=== PATIENT | male | born 1950 | race Caucasian/White ===

== ENCOUNTER 2017-11-28 20:59 | Emergency (ER) | payer MEDICARE, BC ==
[2017-11-28] MEDS ORDERED: ASPIRIN 81 MG TAB.CHEW ONE (21:08)
--- NOTE | 2017-11-28 21:11 | ERNOTE ---
Chest Pain/Cardiac HPI Time Seen by Provider: 11/28/17 21:03 Source: patient Exam Limitations: no limitations Allergies/Adverse Reactions: Allergies morphine Adverse Reaction (Mild, Verified 01/10/16 12:56) Vomiting oxycodone HCl [From Percocet] Adverse Reaction (Mild, Verified 01/10/16 12:56) Vomiting Home Medications: HOME MEDICATIONS Dicyclomine HCl [Bentyl] 10 mg PO TID PRN #20 capsule 11/29/17 [Last Taken Unknown] Narrative: Pt had onset of substernal chest pain around 16:00 today after some period of exertion. Timing: constant Severity/Quality: moderate, dull Location: substernal Chest Pain Radiation: back Activities at Onset: activity - had been putting up a garage door but had finished before the pain began Modifying Factors - Improves: Present: nothing Associated Symptoms: Absent: shortness of breath, diaphoresis, fever/chills, nausea, vomiting Review of Systems - Review of Systems Constitutional: Absent: recent illness, fever, chills EYE: Present: no symptoms reported ENT: Absent: nose congestion, nasal drainage Respiratory: Absent: shortness of breath, cough Cardiology: Present: See HPI Gastrointestinal/Abdominal: Absent: nausea, vomiting Genitourinary: Absent: frequency, pain, dysuria Musculoskeletal: Present: no symptoms reported Skin: Present: no symptoms reported Neurological: Present: no symptoms reported Endocrine: Present: no symptoms reported Hematologic/Lymphatic: Present: no symptoms reported Psych: Present: no symptoms reported - Patient's Past Medical History Patient History - Medical: Chronic Pain Patient History - Cardiac/Respiratory: Hyperlipidemia Patient History - Cancer: No Hx of Cancer Patient History - Surgical Procedures: Colonoscopy, T & A Patient History - Other: None - Family History Brother Family History - Cardiac/Respiratory: Coronary Heart Disease Father Family History - Medical: Family History - Cardiac/Respiratory: Coronary Heart Disease Mother Family History - Medical: - Social History Abuse History: No History of abuse Psych History: No pertinent hx Physical Exam - Physical Exam General Appearance: Present: wd/wn, alert, no apparent distress Head Exam: Present: normal inspection, no evidence of injury Eye Exam: Normal inspection: bilateral Ears, Nose, Throat: Present: normal ENT inspection Neck: Present: normal inspection, nontender, supple, full range of motion Respiratory: Present: no respiratory distress, normal breath sounds, no accessory muscle use, chest nontender, lungs clear Cardiovascular/Chest: Present: regular rate, rhythm, no murmur, normal peripheral pulses Gastrointestinal/Abdominal: Present: normal bowel sounds, nontender, soft Extremity Exam: Present: normal inspection, non-tender, normal range of motion, no edema Neurological Exam: Present: alert, oriented, normal mood/affect, no motor/ sensory deficits Skin Exam: Present: normal color, warm/dry Lymphatic Exam: Present: no adenopathy ED Progress - Results and Orders Patient's Lab Results:: I have reviewed the patient's lab results. Results and Orders: Laboratory Tests 11/28/17 21:21 WBC 12.2 H Hgb 14.8 Hct 43.7 Plt Count 299 Neutrophils % 80.0 H Laboratory Tests 11/28/17 21:21 Sodium 137 Potassium 3.9 Chloride 102 Carbon Dioxide 28.8 Anion Gap 10.1 BUN 20 Creatinine 1.15 Random Glucose 167 H Calcium 8.7 Total Bilirubin 0.3 AST 18 ALT 29 Alkaline Phosphatase 58 Troponin I Less than 0.017 Total Protein 7.3 Albumin 3.7 - Vital Signs Patient's Vital Signs:: I have reviewed the patient's vital signs. - EKG EKG: NSR, ST depression - minimal , other - moderate intraventricular conduction delay- unchanged from 11/10/15 - X-Ray X-Ray #1 X-Ray: chest Interpretation: Interp. by me X-ray Comments: no acute changes: no infiltrate or effusion - CT/Ultrasound CT/Ultrasound Narrative: US abdomen: cholelithiasis without wall thickening or pericholecystic fluid normal liver left renal cyst. - Progress/Reassessment Progress:: Re-examined Progress Note-Subjective: 11/28/17 22:33 Pt now states that his pain is more RUQ abdominal and that he is beginning to get nauseous Departure Clinical Impression: Cholelithiasis Qualifiers: Cholelithiasis location: gallbladder Cholecystitis presence: without cholecystitis Biliary obstruction: without biliary obstruction Qualified Code(s) : K80.20 - Calculus of gallbladder without cholecystitis without obstruction - Departure Disposition: Home Follow Up Needed Condition: Good Instructions: Cholelithiasis, [id number] Additional Instructions: Take medication as needed. Follow a very low fat diet. If not improving see your primary care provider for further evaluation and or treatment Referrals: Issa Marino MD [Primary Care Provider] - Prescriptions: Dicyclomine HCl [Bentyl] 10 mg PO TID PRN #20 capsule PRN Reason: Pain
[2017-11-28] MEDS: ASPIRIN 81 MG TAB.CHEW PO ONE (21:13)
[2017-11-28 21:23] LABS: Hematocrit 43.7 % (42.0-52.0); Hemoglobin 14.8 gm/dL (13.5-18.0); Mean Cell Volume 90.3 fl (78-100); Mean Corpuscular Hemoglobin 30.6 pg (27-31); Mean Corpuscular Hgb Conc 33.9 g/dl (32-36); Mean Platelet Volume 9.7 fl (6.0-9.5); Neutrophil # 9.7 K/mm3 (1.3-6.0); Platelet Count 299 K/mm3 (150-450); Red Blood Count 4.84 M/mm3 (4.7-6.0); Red Cell Distribution Width 12.6 % (11.5-14.0); White Blood Count 12.2 K/mm3 (4.0-10.5)
[2017-11-28 21:40] LABS: ALT 29 U/L (19-67); AST 18 U/L (0-48); Albumin * 3.7 gm/dl (3.4-5.0); Alkaline Phosphatase * 58 U/L (50-170); Anion Gap 10.1 mmol/L (6.8-13.8); BUN/Creatinine Ratio 17.4 (9.0-21.6); Bilirubin, Total 0.3 mg/dL (0.0-1.1); Blood Urea Nitrogen 20 mg/dL (6-23); Ca. Corrected For Albumin 8.6 mg/dL (8.4-10.2); Calcium * 8.7 mg/dL (7.9-10.9); Carbon Dioxide 28.8 mmol/L (24-32.6); Chloride 102 mmol/L (97-106); Glucose * 167 mg/dL (70-110); Potassium 3.9 mmol/L (3.4-4.6); Sodium 137 mmol/L (132-142); Total Protein 7.3 gm/dL (6.2-8.2)
[2017-11-28 21:41] LABS: Troponin I Less than 0.017 ng/ml (0.00-0.10)
[2017-11-28] MEDS ORDERED: ONDANSETRON HCL/PF 2 MG/ML VIAL ONE (22:36)
[2017-11-28] MEDS: NORMAL SALINE 1,000 ML IV ONE (22:36)
[2017-11-28] MEDS: ONDANSETRON HCL/PF 2 MG/ML VIAL IV ONE (22:37)
[2017-11-29] MEDS ORDERED: DICYCLOMINE HCL 20 MG TABLET ONE (01:44)
[2017-11-29] MEDS ORDERED: SENNOSIDES 8.6 MG TABLET ONE (01:44)
[2017-11-29] MEDS ORDERED: DICYCLOMINE HCL 10 MG CAPSULE ONE (01:45)
[2017-11-29] MEDS: SENNOSIDES 8.6 MG TABLET PO ONE (01:48)
[2017-11-29] MEDS: DICYCLOMINE HCL 10 MG CAPSULE PO ONE (01:48)
[2017-11-29 09:20] VITALS: BP 164/86
== END 2017-11-29 01:51 | disposition home or self-care (01) ==
LOC: ER 20:59
DX: K80.20 Calculus of gallbladder without cholecystitis without obstruction
CPT/HCPCS: 36415; 71046; 76700; 80053; 84484; 85025; 93005; 96374; 99284; J2405